=== PATIENT | male | born 1950 | race Caucasian/White ===

== ENCOUNTER 2017-10-09 12:55 | Emergency (ER) | payer MEDICARE ==
[~2017-10-09] VITALS: Ht 157.5 cm; Wt 83.9 kg
[2017-10-09 12:59] VITALS: BP_SYST 162
[2017-10-09] MEDS ORDERED: NACL 0.9% 1,000 ML IV ONE (13:38)
[2017-10-09] MEDS ORDERED: ONDANSETRON HCL 4 MG/2 ML VIAL IVP ONE (13:45)
[2017-10-09] MEDS ORDERED: HYDROmorphone 1 MG INJ. 1 MG/ML AMPUL IVP ONE (13:45)
[2017-10-09] MEDS ORDERED: ASPIRIN 325 MG TABLET PO ONE (13:45)
[2017-10-09 13:50] LABS: BILIRUBIN,URINE NEGATIVE (NEGATIVE); BLOOD, URINE 3+ (NEGATIVE); COLOR,URINE YELLOW (YELLOW); GLUCOSE,URINE 1+ (NEGATIVE); KETONES,URINE 2+ (NEGATIVE); LEUKOCYTE ESTERASE ,URINE NEGATIVE (NEGATIVE); NITRITE, URINE NEGATIVE (NEGATIVE); PH,URINE 5.5 (5.0-8.0); PROTEIN URINE 1+ (NEGATIVE); UROBILINOGEN,URINE 0.2 (0.2-1.0)
[2017-10-09 13:53] LABS: CLARITY/URINE HAZY (CLEAR)
[2017-10-09] MEDS ORDERED: HYDROmorphone 2 MG/ML VIAL ONE (14:00)
[2017-10-09 14:09] LABS: BACTERIA,URINE FEW /HPF (None Seen); MUCUS,URINE 1+ /LPF (None Seen); RBC,URINE 50-80 /HPF (0-3); YEAST,URINE Few /HPF (None Seen)
[2017-10-09 14:22] LABS: BASOPHILS % (AUTO) 0.3 % (0.0-2.0); EOSINOPHILS % (AUTO) 0.5 % (0.0-4.0); HEMATOCRIT 46.9 % (36-54); HEMOGLOBIN 15.2 g/dL (14.0-18.0); LYMPHOCYTES # (AUTO) 1.4 K/uL (1.0-5.5); LYMPHOCYTES % (AUTO) 18.3 % (20.5-51.5); MEAN CORPUSCULAR HEMOGLOBIN 29 pg (27-31); MEAN CORPUSCULAR HGB CONC 32 % (32-36); MEAN CORPUSCULAR VOLUME 90 fL (79.0-98.0); MONOCYTES # (AUTO) 0.5 K/uL (0.0-1.0); MONOCYTES % (AUTO) 5.9 % (1.7-9.3); NEUTROPHILS # (AUTO) 5.9 K/uL (1.8-7.7); PLATELET COUNT (AUTO) 268 K/uL (130-430); RED BLOOD CELL COUNT(AUTO) 5.21 MIL/uL (4.2-6.2); RED CELL DISTRIBUTION WIDTH 12.8 % (9.0-15.0); WHITE BLOOD COUNT (AUTO) 7.8 K/uL (4.8-10.8)
[2017-10-09 14:45] LABS: CREATININE 1.42 mg/dL (0.55-1.30); POTASSIUM 3.2 mmol/L (3.5-5.1)
[2017-10-09 14:46] LABS: PROTHROMBIN TIME 9.9 SECS (9.5-12.5)
[2017-10-09 14:49] LABS: ALBUMIN 3.8 g/dL (3.4-4.8)
[2017-10-09] MEDS ORDERED: KETOROLAC TROMETHAMINE 30 MG VIAL IVP ONE (15:00)
[2017-10-09] MEDS ORDERED: MORPHINE SULFATE 10 MG/ML VIAL IVP ONE (15:30)
[2017-10-09 16:23] VITALS: BP_SYST 147
== END 2017-10-09 16:20 | disposition home or self-care (01) ==
LOC: SED 12:55
DX: N20.0 Calculus of kidney (principal); N23 Unspecified renal colic; I25.2 Old myocardial infarction; E11.9 Type 2 diabetes mellitus without complications; I10 Essential (primary) hypertension; Z98.890 Other specified postprocedural states
CPT/HCPCS: 36415; 74176; 80053; 81000; 82150; 82550; 83690; 84484; 85025; 85610; 85730; 87086; 93005; 96361; 96374; 96375; 99285; J1170; J1885; J2270; J2405; J7030

== ENCOUNTER 2021-02-23 06:06 | Emergency (ER) | payer MEDICARE ==
[~2021-02-23] VITALS: Ht 154.9 cm; Wt 81.6 kg
--- NOTE | 2021-02-23 06:06 | NUR ---
Patient to ER bed 1 to gown for evaluation. Side rails up.
--- NOTE | 2021-02-23 06:07 | NUR ---
KARIN Jaimes at bedside examining patient.
--- NOTE | 2021-02-23 06:15 | NUR ---
BS 184, Dr. Jaimes notified.
[2021-02-23] MEDS ORDERED: fentaNYL CITRATE/PF 100 MCG/2 ML AMP ONE ×2 (06:23→14:19)
[2021-02-23 06:26] VITALS: BP_SYST 191
[2021-02-23] MEDS ORDERED: ACETAMINOPHEN 325 MG SUPP.RECT RC ONE ×3 (06:30→06:45)
[2021-02-23] MEDS ORDERED: HALOPERIDOL LACTATE 5 MG/ML VIAL IVP ONE ×3 (06:30→10:45)
[2021-02-23] MEDS ORDERED: fentaNYL CITRATE/PF 100 MCG/2 ML AMP IVP ONE ×4 (06:30→14:30)
[2021-02-23] MEDS ORDERED: NS 1000 ML IV.SOLN IV ONE (06:30)
--- NOTE | 2021-02-23 06:30 | NUR ---
# 20 gauge angiocath placed to right hand. Use of asceptic technique. Opsite placed over site. Blood return noted. Blood for lab drawn from site. Flushed with 10 cc of normal saline. No evidence of infiltration noted. Patient tolerated well. Blood cultures drawn, prior to administration of antibiotic.
--- NOTE | 2021-02-23 06:40 | NUR ---
# 16 FR Mejia catheter with use of sterile technique. Immediate return of 150 cc clear yellow urine noted. Bedside drainage bag placed below level of bladder. Urine sample collected and sent to lab. Pt tolerated procedure well.
--- NOTE | 2021-02-23 06:44 | NUR ---
EKG performed at by Delores. Physician given copy of EKG for review.
[2021-02-23] MEDS ORDERED: EMPA25TA PO (06:45)
[2021-02-23] MEDS ORDERED: ISOS60TA71 PO (06:45)
[2021-02-23] MEDS ORDERED: AMLO5TAB4 PO (06:45)
[2021-02-23] MEDS ORDERED: LIP80 PO (06:45)
[2021-02-23] MEDS ORDERED: LISI10TA29 PO (06:45)
[2021-02-23] MEDS ORDERED: GLIP10TA21 PO (06:45)
[2021-02-23] MEDS ORDERED: FAMO20TA8 PO (06:45)
[2021-02-23] MEDS ORDERED: METO50TA7 PO (06:45)
[2021-02-23] MEDS ORDERED: NITSL SL (06:45)
[2021-02-23] MEDS ORDERED: METF1000 PO (06:45)
[2021-02-23] MEDS ORDERED: PIPERACILLIN/TAZO 3.375 GM in NS 50 ML IV ONE (06:45)
[2021-02-23] MEDS ORDERED: VENL37.55 PO (06:45)
--- NOTE | 2021-02-23 06:45 | NUR ---
Medication reconciliation completed with information provided by patient's family. Any prior medication reconciliation on file was reviewed and corrected.
--- NOTE | 2021-02-23 06:49 | NUR ---
X-ray at bedside.
[2021-02-23 06:54] LABS: BASOPHILS # (AUTO) 0.1 K/uL (0.0-0.2); BASOPHILS % (AUTO) 0.8 % (0.0-2.0); EOSINOPHILS # (AUTO) 0.1 K/uL (0.0-0.4); EOSINOPHILS % (AUTO) 0.8 % (0.0-4.0); HEMATOCRIT 41.6 % (36-54); HEMOGLOBIN 13.8 g/dL (14.0-18.0); LYMPHOCYTES # (AUTO) 1.5 K/uL (1.0-5.5); LYMPHOCYTES % (AUTO) 14.4 % (20.5-51.5); MEAN CORPUSCULAR HEMOGLOBIN 31 pg (27-31); MEAN CORPUSCULAR HGB CONC 33 % (32-36); MEAN CORPUSCULAR VOLUME 92 fL (79.0-98.0); MONOCYTES # (AUTO) 0.6 K/uL (0.0-1.0); MONOCYTES % (AUTO) 6.2 % (1.7-9.3); NEUTROPHILS # (AUTO) 7.9 K/uL (1.8-7.7); NEUTROPHILS % (AUTO) 77.8 % (40.0-70.0); PLATELET COUNT (AUTO) 231 K/uL (130-430); RED BLOOD CELL COUNT(AUTO) 4.53 MIL/uL (4.2-6.2); RED CELL DISTRIBUTION WIDTH 16.1 % (9.0-15.0); WHITE BLOOD COUNT (AUTO) 10.1 K/uL (4.8-10.8)
[2021-02-23 07:02] LABS: BILIRUBIN,URINE NEGATIVE (NEGATIVE); BLOOD, URINE 2+ (NEGATIVE); CLARITY/URINE CLEAR (CLEAR); COLOR,URINE YELLOW (YELLOW); GLUCOSE,URINE 3+ (NEGATIVE); KETONES,URINE 1+ (NEGATIVE); LEUKOCYTE ESTERASE ,URINE NEGATIVE (NEGATIVE); NITRITE, URINE NEGATIVE (NEGATIVE); PROTEIN URINE NEGATIVE (NEGATIVE); UROBILINOGEN,URINE 0.2 (0.2-1.0)
--- NOTE | 2021-02-23 07:02 | NUR ---
Osei call in [facility] - 02/23/21 at 1103 by MABEL Patient transported to radiology via [facility], accompanied by STAFF AND ANABELLA DOSS
[2021-02-23] MEDS ORDERED: PIPERACILLIN/TAZOBACTAM 3.375 GM/VIAL (ZOSYN) IV ONE (07:03)
[2021-02-23 07:12] LABS: ANION GAP 23 (5-15); CALCIUM 8.9 mg/dL (8.4-11.0); CHLORIDE 104 mmol/L (98-107); GLUCOSE 198 mg/dL (70-99); POTASSIUM 3.9 mmol/L (3.5-5.1); SODIUM SERUM 141 mmol/L (136-145); UREA NITROGEN, BLOOD 15 mg/dL (8-21)
[2021-02-23 07:14] LABS: PROTHROMBIN TIME 9.8 SECS (9.5-12.5)
[2021-02-23 07:18] LABS: BARBITURATE, URINE NEGATIVE (NEG <=200); METHAMPHETAMINES SCREEN,URINE NEGATIVE (NEG <=500); URINE AMPHETAMINE NEGATIVE (NEG <=500); URINE METHADONE NEGATIVE (NEG <=200)
[2021-02-23 07:19] LABS: BENZODIAZEPINE, URINE NEGATIVE (NEG <=150); CANNABINOID, URINE NEGATIVE (NEG <=50); COCAINE, URINE NEGATIVE (NEG <=150); OPIATE, URINE NEGATIVE (NEG <=100); PHENCYCLIDINE SCREEN,URINE NEGATIVE (NEG <=25); UR TRICYCLIC ANTIDEPRESSANTS NEGATIVE (NEG <=300); URINE OXYCODONE SCREEN NEGATIVE (NEG <=100); URINE PROPOXYPHENE SCREEN NEGATIVE (NEG <=300)
[2021-02-23 07:22] LABS: BACTERIA,URINE RARE /HPF (None Seen); MUCUS,URINE 1+ /LPF (None Seen); WBC,URINE 0-3 /HPF (0-3)
[2021-02-23 07:26] LABS: ALANINE AMINOTRANSFERASE 53 U/L (12-78); ALBUMIN 3.6 g/dL (3.4-4.8); ASPARTATE AMINOTRANSFERASE 34 U/L (10-37); TOTAL BILIRUBIN 0.8 mg/dL (0.0-1.0)
--- NOTE | 2021-02-23 07:27 | NUR ---
Pt asleep in [facility] at this time, no distress noted
[2021-02-23 07:29] LABS: ACETAMINOPHEN < 1 ug/mL (1-30); ALCOHOL, BLOOD < 3 mg/dL (<10)
[2021-02-23 07:43] LABS: ACETONE, SERUM NEGATIVE (NEGATIVE)
--- NOTE | 2021-02-23 08:02 | NUR ---
Patient transported to radiology via GURNEY, accompanied by STAFF AND ANABELLA DOSS
[2021-02-23] MEDS ORDERED: LORazepam 2 MG/ML VIAL ONE ×2 (08:13→13:21)
[2021-02-23] MEDS ORDERED: LORazepam 2 MG/ML VIAL IVP ONE ×5 (08:15→13:30)
--- NOTE | 2021-02-23 10:29 | NUR ---
Dr. Martin, [place] [facility] Doc, called back to speak to Dr. Jaimes regarding pt status.
[2021-02-23] MEDS ORDERED: LIDOCAINE 2%, 20 ML MDV ONE (11:12)
--- NOTE | 2021-02-23 11:42 | NUR ---
PERFORMED LUMBAR PUNCTURE. PT TOLERATED WELL.
[2021-02-23 12:37] LABS: CSF PROTEIN 45 mg/dL (15-45)
--- NOTE | 2021-02-23 12:37 | NUR ---
Dr. Dumont, called back to speak to Dr. Jaimes
[2021-02-23 12:38] LABS: CSF COLOR COLORLESS (COLORLESS)
[2021-02-23 12:39] LABS: CSF APPEARANCE CLEAR (CLEAR)
[2021-02-23 13:07] LABS: CSF RED BLOOD CELL COUNT #1 18 /uL (0-0); CSF WHITE BLOOD CELL COUNT #1 1 /uL (0-5)
[2021-02-23 13:08] LABS: CSF GLUCOSE 113 mg/dL (40-70); CSF RED BLOOD CELL COUNT #4 1 /uL (0-0); CSF WHITE BLOOD CELL COUNT #4 1 /uL (0-5)
[2021-02-23] MEDS ORDERED: NACL 0.9% 1,000 ML IV ONE ×2 (13:15→14:30)
[2021-02-23] MEDS ORDERED: BENZTROPINE MESYLATE 2 MG/ 2 ML AMP ONE (13:26)
[2021-02-23] MEDS ORDERED: BENZTROPINE MESYLATE 2 MG/ 2 ML AMP IVP ONE (13:30)
--- NOTE | 2021-02-23 14:25 | NUR ---
SPOKE WITH [facility]SF[facility]. DR GRANADOS WANTS TO REASSESS BEFORE TRANSFERING DUE TO ELEVATED HR 124. MONITORING PT
--- NOTE | 2021-02-23 14:32 | NUR ---
DR GRANADOS STATES GOAL HR BETWEEN 110-120 BEFORE PT TRANSPORT.
--- NOTE | 2021-02-23 14:59 | NUR ---
RECTAL TEMPERATURE 100.7. NOTIFIED
[2021-02-23] MEDS ORDERED: ACETAMINOPHEN 650 MG SUPP.RECT RC ONE ×2 (15:06→15:15)
--- NOTE | 2021-02-23 16:20 | NUR ---
PT IS RESTING IN [facility]. PT IS ABLE TO RESPOND APPROPRIATLY TO QUESTIONS. PT STATES SHE "FEELS BETTER" PT IS PRESENTING CALM. DENIES ANY PAIN.
--- NOTE | 2021-02-23 16:35 | NUR ---
REPORT CALLED TO VIR[facility]IA BROCK.
[2021-02-23 16:50] LABS: FREE T4 (FREE THYROXINE) 0.9 ng/dl (0.8-1.5); THYROID STIMULATING HORMONE 1.09 uIu/mL (0.36-3.74)
--- NOTE | 2021-02-23 16:58 | NUR ---
SPOKE WITH FAMILY and updated them on transfer to [facility].
[2021-02-23 17:06] VITALS: BP_SYST 133
--- NOTE | 2021-02-23 17:06 | NUR ---
Patient to be transferred to [facility]. Is being transferred due to higher level of care. Receiving facility has accepting physician and available space. ER physician has signed transfer form. Patient or responsible constitution party has agreed to transfer and signed form. Patient belongings inventoried and will be sent with patient. Copy of nursing notes, lab reports, EKG, Physicians Orders and X-rays to be sent with patient. Report called to Conrad at receiving facility. Receiving physician is Dr Dennis. [facility] ambulance service has been called ETA now.
== END 2021-02-23 17:06 ==
LOC: SED 06:06
DX: A41.9 Sepsis, unspecified organism (principal); R65.20 Severe sepsis without septic shock; R41.0 Disorientation, unspecified; I10 Essential (primary) hypertension; E11.9 Type 2 diabetes mellitus without complications; I25.2 Old myocardial infarction; Z79.84 Long term (current) use of oral hypoglycemic drugs; Z79.899 Other long term (current) drug therapy; Z20.822 Contact with and (suspected) exposure to COVID-19
CPT/HCPCS: 36415; 70450-TC; 71045; 71250-TC; 76376; 80053; 80307; 81000; 82009; 82140; 82947; 83605; 83690; 84157; 84439; 84443; 84484; 85025; 85048; 85610-TC; 85651-TC; 85730-TC; 86140; 87040-TC; 87070-TC; 87086; 87205-TC; 89051-TC; 93005; 96361; 96365; 96375; 96376; 99285; 99291; G0480; G0481; G0482; J0515; J1630; J2001; J2060; J2543; J3010; J7030

== ENCOUNTER 2023-10-31 20:16 | Emergency (ER) | payer MEDICARE ==
[~2023-10-31] VITALS: Ht 152.4 cm; Wt 81.6 kg
[2023-10-31 20:16] VITALS: BP_SYST 130; PULSE 79; RESP 18; TEMP 97.9; O2SAT 98
[~2023-10-31 20:16] MED LIST: AMLO5TAB4 PO; EMPA25TA PO; FAMO20TA8 PO; GLIP10TA21 PO; ISOS60TA71 PO; LIP80 PO; LISI10TA29 PO; METF1000 PO; METO50TA7 PO; NITSL SL; VENL37.55 PO
[2023-10-31] MEDS ORDERED: iohexoL 350 mgI/mL, 100 ML INFUS..BTL IV ONE (20:31)
[2023-10-31] MEDS ORDERED: CLOP75TA32 PO (20:42)
[2023-10-31] MEDS ORDERED: METF-1069 (20:42)
[2023-10-31] MEDS ORDERED: DOXYCYCLINE (20:42)
[2023-10-31] MEDS ORDERED: TOPI25TA PO (20:42)
[2023-10-31] MEDS ORDERED: ATOR-1 PO (20:42)
[2023-10-31] MEDS ORDERED: LISI2.5T48 PO (20:42)
[2023-10-31] MEDS ORDERED: VENL37.587 PO (20:42)
[2023-10-31] MEDS ORDERED: SITA1TBM (20:42)
[2023-10-31] MEDS ORDERED: BISO5TAB15 PO (20:42)
[2023-10-31] MEDS ORDERED: NEO/5DRO7 EACH EYE (20:42)
[2023-10-31] MEDS ORDERED: GLIP5TAB13 (20:42)
[2023-10-31] MEDS ORDERED: NYST15PO4 TP (20:42)
[2023-10-31] MEDS ORDERED: FLUC150T47 PO (20:42)
[2023-10-31 21:10] LABS: BASOPHILS % (AUTO) 0.6 % (0.0-2.0); EOSINOPHILS # (AUTO) 0.2 K/uL (0.0-0.4); EOSINOPHILS % (AUTO) 2.9 % (0.0-4.0); HEMATOCRIT 37.7 % (36-54); HEMOGLOBIN 12.6 g/dL (14.0-18.0); LYMPHOCYTES % (AUTO) 24.1 % (20.5-51.5); MEAN CORPUSCULAR HEMOGLOBIN 31 pg (27-31); MEAN CORPUSCULAR HGB CONC 34 % (32-36); MEAN CORPUSCULAR VOLUME 93 fL (79.0-98.0); MONOCYTES # (AUTO) 0.7 K/uL (0.0-1.0); MONOCYTES % (AUTO) 8.6 % (1.7-9.3); NEUTROPHILS # (AUTO) 5.2 K/uL (1.8-7.7); NEUTROPHILS % (AUTO) 63.8 % (40.0-70.0); PLATELET COUNT (AUTO) 231 K/uL (130-430); RED BLOOD CELL COUNT(AUTO) 4.08 MIL/uL (4.2-6.2); RED CELL DISTRIBUTION WIDTH 14.9 % (9.0-15.0); WHITE BLOOD COUNT (AUTO) 8.1 K/uL (4.8-10.8)
[2023-10-31 21:13] LABS: ANION GAP 12 (5-15); CARBON DIOXIDE 20 mmol/L (23-29); CHLORIDE 107 mmol/L (98-107); CREATININE 1.45 mg/dL (0.55-1.30); GLUCOSE 60 mg/dL (74-106); POTASSIUM 3.7 mmol/L (3.5-5.1); SODIUM SERUM 139 mmol/L (136-145); UREA NITROGEN, BLOOD 35 mg/dL (8-21)
[2023-10-31 21:21] LABS: PROTHROMBIN TIME 10.7 SECS (9.5-12.5)
[2023-10-31] MEDS ORDERED: DEXTROSE 50% JECT 50 ML DISP.SYRIN ONE (21:44)
[2023-10-31] MEDS: DEXTROSE 50% JECT 50 ML DISP.SYRIN IVP ONE (21:54)
[2023-10-31] MEDS: LORazepam 2 MG/ML VIAL IVP ONE ×2 (22:04→22:55)
[2023-10-31 23:30] LABS: ALBUMIN 3.4 g/dL (3.4-4.8); BILIRUBIN,DIRECT 0.2 mg/dL (0.0-0.3); TOTAL BILIRUBIN 0.6 mg/dL (0.0-1.0); TOTAL PROTEIN, SERUM 6.6 g/dL (6.4-8.3)
[2023-10-31 23:33] LABS: BILIRUBIN,URINE NEGATIVE (NEGATIVE); CLARITY/URINE CLEAR (CLEAR); COLOR,URINE YELLOW (YELLOW); GLUCOSE,URINE 3+ (NEGATIVE); KETONES,URINE NEGATIVE (NEGATIVE); LEUKOCYTE ESTERASE ,URINE NEGATIVE (NEGATIVE); NITRITE, URINE NEGATIVE (NEGATIVE); PROTEIN URINE NEGATIVE (NEGATIVE); UROBILINOGEN,URINE 0.2 (0.2-1.0)
[2023-10-31 23:36] LABS: BLOOD, URINE TRACE (NEGATIVE)
[2023-10-31 23:43] LABS: BACTERIA,URINE RARE /HPF (None Seen); RBC,URINE 0-3 /HPF (0-3); WBC,URINE 0-3 /HPF (0-3)
[2023-11-01 00:11] LABS: INFLUENZA TYPE A Negative (NEGATIVE); INFLUENZA TYPE B NEGATIVE (NEGATIVE)
[2023-11-01] MEDS ORDERED: LORazepam 2 MG/ML VIAL IVP ONE (00:15)
[2023-11-01 00:35] VITALS: BP_SYST 163; PULSE 102; RESP 16; TEMP 98.1; O2SAT 98
== END 2023-11-01 00:35 | disposition short-term general hospital (02) ==
LOC: SED 20:16
DX: R41.82 Altered mental status, unspecified (principal); R51.9 Headache, unspecified; E11.9 Type 2 diabetes mellitus without complications; I10 Essential (primary) hypertension; Z79.899 Other long term (current) drug therapy; Z20.822 Contact with and (suspected) exposure to COVID-19
CPT/HCPCS: 99291; 70496; 96374; 71045; 87426; 80076; 80048; 81001; 83880; 85025; 85610; 85730; 84484; 36415; 93005; 70498; 82948; 87804 ×2; 96376; 81000; 70450; 81015; 76376; Q9967; J2060

== ENCOUNTER 2023-11-13 13:49 | Emergency (ER) | payer MEDICARE ==
[~2023-11-13] VITALS: Ht 172.7 cm; Wt 81.6 kg
[~2023-11-13 13:49] MED LIST changes: +ATOR-1 PO; +BISO5TAB15 PO; +CLOP75TA32 PO; +DOXYCYCLINE; +FLUC150T47 PO; +GLIP5TAB13; +LISI2.5T48 PO; +METF-1069; +NEO/5DRO7 EACH EYE; +NYST15PO4 TP; +SITA1TBM; +TOPI25TA PO; +VENL37.587 PO
[2023-11-13 13:50] VITALS: BP_SYST 124; PULSE 86; RESP 19; TEMP 98; O2SAT 98
[2023-11-13] MEDS: DEXTROSE 50% JECT 50 ML DISP.SYRIN IVP ONE ×2 (14:14→16:35)
[2023-11-13 14:36] LABS: BASOPHILS # (AUTO) 0.1 K/uL (0.0-0.2); BASOPHILS % (AUTO) 0.8 % (0.0-2.0); EOSINOPHILS # (AUTO) 0.4 K/uL (0.0-0.4); EOSINOPHILS % (AUTO) 4.2 % (0.0-4.0); HEMATOCRIT 40.5 % (36-54); HEMOGLOBIN 13.6 g/dL (14.0-18.0); LYMPHOCYTES # (AUTO) 2.6 K/uL (1.0-5.5); LYMPHOCYTES % (AUTO) 29.7 % (20.5-51.5); MEAN CORPUSCULAR HEMOGLOBIN 31 pg (27-31); MEAN CORPUSCULAR HGB CONC 34 % (32-36); MEAN CORPUSCULAR VOLUME 93 fL (79.0-98.0); MONOCYTES # (AUTO) 0.8 K/uL (0.0-1.0); MONOCYTES % (AUTO) 9.4 % (1.7-9.3); NEUTROPHILS # (AUTO) 4.9 K/uL (1.8-7.7); NEUTROPHILS % (AUTO) 55.9 % (40.0-70.0); PLATELET COUNT (AUTO) 297 K/uL (130-430); RED BLOOD CELL COUNT(AUTO) 4.35 MIL/uL (4.2-6.2); RED CELL DISTRIBUTION WIDTH 14.9 % (9.0-15.0); WHITE BLOOD COUNT (AUTO) 8.7 K/uL (4.8-10.8)
[2023-11-13 14:46] LABS: ANION GAP 16 (5-15); CALCIUM 8.9 mg/dL (8.4-11.0); CARBON DIOXIDE 23 mmol/L (23-29); CHLORIDE 104 mmol/L (98-107); CREATININE 1.25 mg/dL (0.55-1.30); POTASSIUM 3.4 mmol/L (3.5-5.1); SODIUM SERUM 143 mmol/L (136-145); UREA NITROGEN, BLOOD 32 mg/dL (8-21)
[2023-11-13 14:50] LABS: GLUCOSE 33 mg/dL (74-106)
[2023-11-13 15:03] LABS: PROTHROMBIN TIME 10.2 SECS (9.5-12.5)
[2023-11-13] MEDS ORDERED: DEXTROSE 50% JECT 50 ML DISP.SYRIN ONE (16:29)
[2023-11-13] MEDS ORDERED: DEXTROSE 10%-WATER 500 ML IV SCH (16:30)
[2023-11-13] MEDS: DEXTROSE 10%-WATER 500 ML IV ONE (16:49)
[2023-11-13 23:13] VITALS: BP_SYST 133; PULSE 79; RESP 18; TEMP 97.3; O2SAT 97
== END 2023-11-13 23:13 | disposition admitted as inpatient to this hospital (09) ==
LOC: SED 13:49
DX: G45.9 Transient cerebral ischemic attack, unspecified (principal); R41.82 Altered mental status, unspecified; E11.649 Type 2 diabetes mellitus with hypoglycemia without coma; I10 Essential (primary) hypertension; Z79.899 Other long term (current) drug therapy
CPT/HCPCS: 99285; 70496; 96361; 96374; 96375; 80048; 85025; 85610; 85730; 84484; 36415; 93005; 70498; 70450; 82948; J7030